=== PATIENT | female | born 1955 | race Caucasian/White ===

== ENCOUNTER 2017-01-19 19:50 | Emergency (ER) | payer OTHER ==
[~2017-01-19] VITALS: Ht 162.6 cm; Wt 115.0 kg
[2017-01-19 20:30] LABS: ADD MIUA? YES; BILIRUBIN NEGATIVE; BLOOD NEGATIVE; COLOR YELLOW ((YELLOW)); GLUCOSE (STRIP) NEGATIVE; KETONES NEGATIVE; LEUKOCYTES SMALL; NITRITE NEGATIVE; PROTEIN (STRIP) 30; SPECIFIC GRAVITY 1.018 (1.000-1.030); UROBILINOGEN 0.2 MG/DL (0.2-1.0)
[2017-01-19 20:45] LABS: BACTERIA RARE /HPF; EPITHELIAL CELLS RARE /HPF; MUCUS TRACE /LPF; RED BLOOD CELLS NONE SEEN /HPF (0-5); UCUL ADDED? NO; WHITE BLOOD CELLS 0-5 /HPF (0-5)
[2017-01-19] MEDS ORDERED: ZOFRAN4 MG PO (21:12)
[2017-01-19] MEDS ORDERED: PERCOCET 5/31 TABLET PO (21:12)
[2017-01-19] MEDS ORDERED: FLOMAX0.4 MG PO (21:12)
[2017-01-19 21:20] LABS: HEMATOCRIT 41.9 % (36.0-46.0); MCH 31.1 PG (29.0-34.0); MCHC 33.2 G/DL (30.0-36.0); MCV 93.7 FL (83-99); MEAN PLAT.VOLUME 9.4 uM^3 (9.5-12.4); PLATELET COUNT 330 K/uL (156-360); RBC DIS.WIDTH-CV 13.5 % (11.8-14.6); RBC DIS.WIDTH-SD 46.7 % (39-53); RED BLOOD COUNT 4.47 M/uL (3.80-5.20); WHITE BLOOD COUNT 10.5 K/uL (4.1-10.2)
[2017-01-19 21:28] LABS: CHLORIDE 106 mEq/L (99-109); POTASSIUM 3.8 mEq/L (3.7-5.4); SODIUM 140 mEq/L (136-147)
[2017-01-19 21:30] LABS: GLUCOSE 110 mg/dL (70-99)
[2017-01-19 21:31] LABS: ANION GAP 9 MEQ/L (2-14)
[2017-01-19 21:32] LABS: TOTAL BILIRUBIN 0.9 mg/dL (0.0-1.0)
[2017-01-19 21:34] LABS: ALKALINE PHOSPHATASE 71 IU/L (3-129); GFR ESTIMATE (CALCULATED) > 59 mL/min/
[2017-01-19 21:35] LABS: UREA NITROGEN (BUN) 16 mg/dL (9-23)
[2017-01-19 21:37] LABS: LIPASE 3 U/L (1.0-51.0)
[2017-01-19 21:53] VITALS: BP 149/92
== END 2017-01-19 21:59 | disposition home or self-care (01) ==
LOC: EME 19:50 → EXP 19:50
PROVIDERS: Physician Assistant
DX: R10.9 Unspecified abdominal pain (principal); N13.30 Unspecified hydronephrosis; Z87.442 Personal history of urinary calculi; Z88.0 Allergy status to penicillin
CPT/HCPCS: 74176; 80053; 81003; 83690; 85027; 99281; 99284; J1885